=== PATIENT | female | born 1945 | race Caucasian/White ===

== ENCOUNTER 2017-11-01 19:53 | Emergency (ER) | payer MEDICARE, OTHER ==
[~2017-11-01] VITALS: Ht 152.4 cm; Wt 92.0 kg
[2017-11-01 20:24] VITALS: BP 132/70; PULSE 87; RESP 18; TEMP 98.3; O2SAT 98
--- NOTE | 2017-11-01 20:54 | PD ---
HPI Chief Complaint: Musculoskeletal Complaint Time Seen by Provider: 20:47 Travel History International Travel<30 days: No Contact w/Intl Traveler<30days: No Traveled to known affect area: No History of Present Illness HPI Patient 72-year-old female visiting the area from outside state presents emergency department for right knee pain atraumatic accompanied with some swelling. Patient is a spell on her knees more often than usual lately. Denies any numbness and tingling injury increased difficulty with walking. Symptoms are moderate, duration as the past 2 days associated signs symptoms and context as above. PFSH Past Medical History Arthritis: Yes (osteo) Hypertension: Yes Past Surgical History Cardiac Surgery: Yes (cath 2015 with abnormal stress test) Cholecystectomy: Yes Ear Surgery: Yes (tumor removed from left side) Neurologic Surgery: Yes (meningioma removed 2016) Tonsillectomy: Yes Social History Alcohol Use: No Tobacco Use: No Substance Use: No Allergies-Medications (Allergen,Severity, Reaction): Coded Allergies: azithromycin (Verified Allergy, Unknown, 11/01/17) carbamazepine (Verified Allergy, Unknown, 11/01/17) ciprofloxacin (Verified Allergy, Unknown, 11/01/17) fluconazole (Verified Allergy, Unknown, 11/01/17) phenytoin (Verified Allergy, Unknown, 11/01/17) Uncoded Allergies: ANTIBIOTICS (Allergy, Unknown, 11/01/17) STATES MANY ANTIBIOTICS, NOT SURE ALL OF THE NAMES Reported Meds & Prescriptions Reported Meds & Active Scripts Active Percocet (Oxycodone-Acetaminophen) 5-325 mg Tab 1 Tab PO Q6H PRN Review of Systems Except as stated in HPI: all other systems reviewed are Neg Physical Exam Narrative GENERAL: Well-nourished, well-developed patient. SKIN: Focused skin assessment warm/dry. HEAD: Normocephalic. EYES: No scleral icterus. No injection or drainage. NECK: Supple, trachea midline. No JVD or lymphadenopathy. CARDIOVASCULAR: Regular rate and rhythm without murmurs, gallops, or rubs. RESPIRATORY: Breath sounds equal bilaterally. No accessory muscle use. GASTROINTESTINAL: Abdomen soft, non-tender, nondistended. MUSCULOSKELETAL: No cyanosis, or edema. No joint effusion appreciated, there is no tenderness to palpation of the patella proximal tibia-fibula or distal femur. Compartments are soft, no joint effusion seen. Patient has full range of motion albeit mildly tender. There is no laxity of the joint. Ankle and hip are nontender. BACK: Nontender without obvious deformity. No CVA tenderness. Data Data Last Documented VS Vital Signs Date Time Temp Pulse Resp B/P (MAP) Pulse Ox O2 Delivery O2 Flow Rate FiO2 11/01/17 20:24 98.3 87 18 132/70 (90) 98 Orders Orders Knee, Complete (4vws) (11/01/17 ) Jerry Bandage (11/01/17 21:35) Ed Discharge Order (11/01/17 21:35) MDM Medical Decision Making Medical Screen Exam Complete: Yes Emergency Medical Condition: Yes Differential Diagnosis Osteoarthritis, fracture unlikely, strain, sprain Narrative Course Patient room to the emergency department, she appears well in no distress, atraumatic knee pain. X-ray does show some arthritis. Patient is able to ambulate albeit with a walker. Discussed with the patient symptomatic follow- up with orthopedic surgeon return to ED criteria. She is stable for discharge Diagnosis Primary Impression: Knee pain, left Additional Impression: Arthritis Additional Instructions: Follow up with an orthopedic surgeon when you return home. Med/Other Pt SpecificInfo: Prescription(s) given Scripts Oxycodone-Acetaminophen (Percocet) 5-325 mg Tab 1 TAB PO Q6H Y for PAIN, #12 TAB 0 Refills Prov: Byron Caro MD 11/01/17 Disposition: 01 DISCHARGE HOME Condition: Stable Byron Caro MD Nov 01, 2017 20:54
--- NOTE | 2017-11-01 21:22 | RADRPT ---
EXAM DATE: 11/01/2017 9:18 PM EDT AGE/SEX: 72 years / Female INDICATIONS: Pain in left knee, pain to medial and lateral side. CLINICAL DATA: This is the patient's initial encounter. Patient reports that signs and symptoms have been present for 1 day and indicates a pain score of 7/10. MEDICAL/SURGICAL HISTORY: None. None. COMPARISON: No prior exams available for comparison. FINDINGS: Extensive degenerative changes are present in the knee with bone articulating with bone. Osteophytes are projected into the patellofemoral compartment. Trace joint effusion is evident. Apparent loose sissy dies are seen posteriorly in the joint capsule. CONCLUSION: Degenerative changes with apparent loose body. Electronically signed by: Ravinder Hwang MD 11/01/2017 9:20 PM EDT
[2017-11-01] MEDS ORDERED: PERC5TAB12 PO ×2 (21:34→21:40)
== END 2017-11-01 22:21 | disposition home or self-care (01) ==
LOC: NEPD 19:53
DX: M25.562 Pain in left knee (principal); M19.90 Unspecified osteoarthritis, unspecified site
CPT/HCPCS: 73564; 99283